=== PATIENT | female | born 1970 | race Two or more races ===

== ENCOUNTER → 2020-10-22 | Outpatient (CLI) | payer OTHER | END | disposition home or self-care (01) | LOC: OFIC 805 11:15 | PROVIDERS: ATTEND Otolaryngology | DX: K21.9 Gastro-esophageal reflux disease without esophagitis (principal); R13.19 Other dysphagia ==

== ENCOUNTER 2020-10-31 09:29 | Outpatient (CLI) | payer OTHER | END 2020-10-31 09:45 | disposition home or self-care (01) | LOC: RX STUDY 09:29 | PROVIDERS: ATTEND Otolaryngology | DX: R13.19 Other dysphagia (principal) ==

== ENCOUNTER 2020-11-05 14:48 | Outpatient (CLI) | payer OTHER | END 2020-11-05 15:10 | disposition home or self-care (01) | LOC: OFIC 805 14:48 | PROVIDERS: ATTEND Otolaryngology | DX: R13.19 Other dysphagia (principal); K21.9 Gastro-esophageal reflux disease without esophagitis ==